=== PATIENT | male | born 2000 | race Two or more races ===

== ENCOUNTER 2018-01-25 00:03 | Emergency (ER) | payer OTHER ==
[~2018-01-25] VITALS: Ht 170.2 cm; Wt 73.3 kg
[2018-01-25] MEDS ORDERED: FAMOTIDINE 20 MG TABLET ONE (00:43)
[2018-01-25] MEDS ORDERED: DIPHENHYDRAMINE 25 MG CAPSULE ONE (00:44)
[2018-01-25] MEDS ORDERED: DIPHENHYDRAMINE 25 MG CAPSULE PO ONE (01:00)
[2018-01-25] MEDS ORDERED: FAMOTIDINE 20 MG TABLET PO ONE (01:00)
[2018-01-25 02:03] VITALS: BP 115/66
== END 2018-01-25 02:05 | disposition home or self-care (01) ==
LOC: EDSEX 00:03 → ED 00:44
DX: T78.40XA Allergy, unspecified, initial encounter (principal); Y92.9 Unspecified place or not applicable
CPT/HCPCS: 99284; J7512; Q0163